=== PATIENT | female | born 1975 | race Two or more races ===

== ENCOUNTER 2017-08-07 09:00 | Day surgery (SDC) | payer OTHER ==
[2017-08-07] VITALS (12 sets, daily range): BP systolic 110–124; BP diastolic 55–76; PULSE 60–82; RESP 13–27; Ht 154.9 cm; Wt 79.9 kg
[~2017-08-07] VITALS: Ht 154.9 cm; Wt 79.9 kg
[2017-08-07] MEDS ORDERED: NORG1TAB2 PO (09:34)
[2017-08-07] MEDS ORDERED: BUPIVACAINE 0.25% (MPF) 30 ML INJ ONE (09:45)
[2017-08-07 10:19] LABS: BASOPHIL # 0.1 10^3/ul (0.0-0.1); BASOPHILS % 0.8 % (0.0-2.0); EOSINOPHILS # 0.4 10^3/ul (0.0-0.5); EOSINOPHILS % 4.9 % (0.0-7.0); HEMATOCRIT 40.2 % (37.0-47.0); MEAN CORPUSCULAR HEMOGLOBIN 30.9 pg (29.0-33.0); MEAN CORPUSCULAR HGB CONC 34.8 g/dl (32.0-37.0); MEAN CORPUSCULAR VOLUME 88.7 fl (82.0-101.0); MEAN PLATELET VOLUME 9.7 fl (7.4-10.4); MONOCYTE # 0.6 10^3/ul (0.3-0.9); MONOCYTES % 7.1 % (0.0-11.0); NEUTROPHIL # 4.9 10^3/ul (1.6-7.5); NEUTROPHILS % 61.9 % (39.0-77.0); PLATELET COUNT 312 10^3/UL (140-415); RED BLOOD COUNT 4.53 10^6/ul (4.20-5.40); RED CELL DISTRIBUTION WIDTH 11.9 % (11.5-14.5); WHITE BLOOD COUNT 7.9 10^3/ul (4.8-10.8)
[2017-08-07 10:27] LABS: ALBUMIN/GLOBULIN RATIO 1.14; BILIRUBIN,INDIRECT 0.5 mg/dl (0-1.1); BILIRUBIN,TOTAL 0.5 mg/dl (0.2-1.3); TOTAL PROTEIN 7.5 g/dl (6.1-8.1)
[2017-08-07 10:28] LABS: CREATININE 0.7 mg/dl (0.44-1.00); POTASSIUM 4.7 mmol/L (3.5-5.1)
[2017-08-07 10:34] LABS: INR 0.98; PROTIME 13.1 Sec (11.9-14.9)
[2017-08-07 10:35] LABS: PARTIAL THROMBOPLASTIN TIME 30.4 Sec (25.0-35.0)
[2017-08-07] MEDS ORDERED: FENTAnyl 50 MCG/ML VIAL ONE ×2 (12:01→13:59)
[2017-08-07] MEDS ORDERED: ROCURONIUM 50 MG INJ ONE (12:01)
[2017-08-07] MEDS ORDERED: ROPIVACAINE 0.2% 20 ML VIAL ONE (12:01)
[2017-08-07] MEDS ORDERED: MIDAZOLAM 1 MG/ML 2 ML INJ ONE (12:01)
[2017-08-07] MEDS ORDERED: PROPOFOL 20 ML ONE (12:01)
[2017-08-07] MEDS ORDERED: DIPHENHYDRAMINE 50 MG INJ ONE (12:32)
[2017-08-07] MEDS ORDERED: METOCLOPRAMIDE 10 MG INJ ONE (12:56)
[2017-08-07] MEDS ORDERED: KETOROLAC 30 MG INJ ONE (12:56)
[2017-08-07] MEDS ORDERED: SUGAMMADEX SODIUM 200 MG/2 ML VIAL IV ONE (12:56)
[2017-08-07] MEDS ORDERED: ONDANSETRON 4 MG INJ ONE (12:56)
[2017-08-07] MEDS ORDERED: DEXAMETHASONE 4 MG/ML 1 ML INJ ONE (12:56)
[2017-08-07] MEDS ORDERED: LABETALOL HCL 20MG INJ ONE (12:57)
--- NOTE | 2017-08-07 13:29 | OPR ---
Date/Time of Note Date/Time of Note DATE: 08/07/17 TIME: 13:21 Operative Report Procedure Date: Aug 07, 2017 Preoperative Diagnosis symptomatic gallstones Postoperative Diagnosis same Operation/Procedure Performed laparoscopic cholecystectomy Surgeon see signature line Vest Finisher none Anesthesia Type: general Estimated Blood Loss: 0 - 10 ml's Transfusion none Specimen gallbladder Grafts/Implants none Complications none Pt Condition Post Procedure: stable Indications This is a 41-year-old female with symptoms and gallstones. She requests surgical excision. Risks alternatives benefits percent were discussed the patient. Patient expressed understanding consents to the operation. Procedure Description Patient is taken to the OR and prepped and draped in usual sterile fashion. Surgical timeout was performed. IV antibiotics given. Infraumbilical incision is made transversely with a 15 blade. Dissection Carrs carried onto the fascia. The fascia was grasped with Pura's and divided with curved Floyd scissors. 0 Vicryl U stitch was placed into the fascia. Blueness on trocar is introduced. Pneumoperitoneum is established. Midepigastric 12 mm optical trocar was placed under direct visualization. Right upper quadrant upper flank 5 mm optical trochars are placed under direct visualization. Upon initial inspection there is some adhesions to the gallbladder. These were taken down bluntly. The gallbladder was grasped and retracted in a lateral our direction. The cautery was used for lateral dissection. The cystic duct was carefully dissected out. 3 clips were placed proximally and distally on the cystic duct because it was thickened and was divided with a 35 mm echelon vascular stapler cystic artery was divided with 3 clips proximal and clip distal. The gallbladder was taken of the gallbladder bed. There is good hemostasis. The gallbladder was retrieved using Endo Catch bag. Ports removed under direct visualization. 0 Vicryl U stitch was tied down. Skin was closed using interrupted and running 4-0 Monocryl. Dry dressings were applied. Ismael BECKWITH Aug 07, 2017 13:29
[2017-08-07] MEDS ORDERED: MEPERIDINE 25 MG INJ IV PRN (13:30)
[2017-08-07] MEDS ORDERED: LABETALOL HCL 20MG INJ IV PRN (13:30)
[2017-08-07] MEDS ORDERED: HYDROCODONE/APAP (5/325) TAB PO ONE (13:30)
[2017-08-07] MEDS ORDERED: EPHEDrine SULFATE 50 MG/5 ML SYG IV PRN (13:30)
[2017-08-07] MEDS ORDERED: FENTAnyl 50 MCG/ML VIAL IV PRN ×3 (13:30)
[2017-08-07] MEDS ORDERED: ONDANSETRON 4 MG INJ IV PRN (13:30)
[2017-08-07] MEDS ORDERED: HYDROmorphONE (0.2 MG/ML) 10ML SYG IV PRN ×3 (13:30)
[2017-08-07] MEDS ORDERED: DIPHENHYDRAMINE 50 MG INJ IV PRN (13:30)
[2017-08-07] MEDS ORDERED: METOCLOPRAMIDE 10 MG INJ IV PRN (13:30)
== END 2017-08-07 16:00 | disposition home or self-care (01) ==
LOC: SDS 09:00
PROVIDERS: ATTEND Surgery
DX: K80.10 Calculus of gallbladder with chronic cholecystitis without obstruction (principal)
CPT/HCPCS: 47562; 80053; 84703; 85025; 85610; 85730; 88304; J1100; J1200; J1885; J2175; J2250; J2405; J2765; J2795; J3010; Z7512; Z7610